=== PATIENT | female | born 1970 | race Caucasian/White ===

== ENCOUNTER 2016-08-08 05:58 | Day surgery (SDC) | payer MEDICAID ==
[~2016-08-08] VITALS: Ht 174 cm; Wt 95.0 kg
[~2016-08-08 05:58] MED LIST: ASPI81 PO; CYAN250014 PO; DIPH25 PO; FERR325T40 PO; INSLAN SQ; IRON-15 PO; LOVA20 PO; NAPR-58 PO; OMEG-12 PO; OMEP20 PO; PROV5 PO; SODIUM CHLORIDE 0.9% 1,000 ML IV ONE
[2016-08-08] MEDS ORDERED: SODIUM CHLORIDE 0.9% 1,000 ML IV ONE ×2 (06:12→06:13)
[2016-08-08] MEDS ORDERED: CeFAZolin 1 GM/DEXTROSE 50 ML IV ONE ×2 (06:13→07:00)
[2016-08-08] MEDS ORDERED: FentaNYL CITRATE-PF 100 MCG/2 ML VIAL IVP ONE ×3 (07:00→08:44)
[2016-08-08] MEDS ORDERED: MIDAZOLAM HCL 2 MG/2 ML VIAL IVP ONE ×3 (07:00→08:44)
[2016-08-08] MEDS ORDERED: DiphenhydrAMINE HCL 25 MG CAPSULE PO ONE (07:00)
[2016-08-08] MEDS ORDERED: DiphenhydrAMINE HCL 25 MG CAPSULE ONE (07:04)
[2016-08-08 07:16] LABS: GLUCOSE COMMENT 1 Doctor Notified; GLUCOSE,POINT OF CARE 153 MG/DL (70-110)
[2016-08-08 07:34] VITALS: BP 120/70
[2016-08-08] MEDS ORDERED: IODIXANOL 320 MG/ML 100 ML VIAL ONE (07:44)
[2016-08-08] MEDS ORDERED: FentaNYL CITRATE-PF 100 MCG/2 ML VIAL ONE ×2 (07:44→08:24)
[2016-08-08] MEDS ORDERED: MIDAZOLAM HCL 2 MG/2 ML VIAL ONE ×2 (07:44→08:49)
[2016-08-08] MEDS ORDERED: 0.9% SODIUM CHLORIDE 10 ML SYRINGE IVP ONE (07:45)
[2016-08-08] MEDS ORDERED: LIDOCAINE HCL/PF 1% 30 ML VIAL ONE (07:45)
[2016-08-08] MEDS ORDERED: HEPARIN SODIUM 1000 UNITS/NS 500 ML ONE (07:45)
[2016-08-08] MEDS ORDERED: LIDOCAINE 1% 30 ML/SOD BICARB 8.4% 4 ML SQ ONE (07:51)
[2016-08-08] MEDS ORDERED: HEPARIN SODIUM 1000 UNITS/NS 1,000 ML IARTER ONE (07:53)
[2016-08-08] MEDS ORDERED: IODIXANOL 320 MG/ML 50 ML VIAL IARTER ONE ×2 (07:56)
[2016-08-08] MEDS ORDERED: IODIXANOL 320 MG/ML 100 ML VIAL IARTER ONE (07:56)
[2016-08-08] MEDS ORDERED: GELATIN SPONGE,ABSORBABLE 12-7 MM TP ONE ×2 (08:35→08:36)
[2016-08-08] MEDS ORDERED: IODIXANOL 320 MG/ML 50 ML VIAL ONE ×2 (08:48→09:01)
[2016-08-08 09:15] VITALS: BP_SYST 120; BP_SYST 147; BP_DIAS 70; BP_DIAS 88
[2016-08-08] MEDS ORDERED: HYDROmorphone 2 MG/ML SYRINGE IVP ONE (09:45)
[2016-08-08 10:12] LABS: GLUCOSE,POINT OF CARE 111 MG/DL (70-110)
== END 2016-08-08 12:15 | disposition home or self-care (01) ==
LOC: SDS 05:58 → EDSTATUS 07:30 → SDS 12:15
PROVIDERS: ATTEND Radiology Vascular & Interventional Radiology
DX: D25.9 Leiomyoma of uterus, unspecified (principal)
CPT/HCPCS: 36247; 37243; 75625; 75736; 82962; C1760; C1769; C1892; J0690; J1170; J1644; J2250; J3010; J3490; J7030; Q9967 ×2; 36245; 76937

== ENCOUNTER 2018-11-06 21:19 | Emergency (ER) | payer MEDICAID ==
[~2018-11-06] VITALS: Ht 170.2 cm; Wt 95.5 kg
[~2018-11-06 21:19] MED LIST changes: +FERR-82 PO; -FERR325T40 PO; +NAPR-1025 PO; -NAPR-58 PO; -SODIUM CHLORIDE 0.9% 1,000 ML IV ONE
[2018-11-06] MEDS ORDERED: INSU100I26 SQ (21:32)
[2018-11-06] MEDS ORDERED: ATOR40TA28 PO (21:32)
[2018-11-06 21:40] LABS: GLUCOSE,POINT OF CARE 144 MG/DL (70-110)
[2018-11-06 21:48] LABS: APPEARANCE,URINE CLOUDY (CLEAR); BILIRUBIN,URINE NEGATIVE (NEGATIVE); GLUCOSE, URINE (UA) NEGATIVE (NEGATIVE); KETONES,URINE NEGATIVE (NEGATIVE); LEUKOCYTE ESTERASE ,URINE TRACE (NEGATIVE); NITRATE,URINE NEGATIVE (NEGATIVE); OCCULT BLOOD,URINE LARGE (NEGATIVE); PH,URINE 6.5 (5.0-8.0); PROTEIN,URINE SEE CONFIRM (NEGATIVE); UROBILINOGEN,URINE 0.2 mg/dL (<=1.0)
[2018-11-06 21:57] LABS: BACTERIA,URINE Rare /HPF (None Seen); RBC,URINE 26-50 /HPF (0-2); SQUAMOUS EPITHELIAL CELL,UR Few /LPF (None Seen); SULFOSALICYLIC ACID,URINE 3+ (Negative)
[2018-11-06 21:58] LABS: BASOPHILS % (AUTO) 1.1 % (0.0-2.0); EOSINOPHILS % (AUTO) 1.7 % (1.0-6.0); HEMOGLOBIN 12.2 g/dL (12.0-16.0); LYMPHOCYTES % (AUTO) 38.2 % (22.0-44.0); MEAN CORPUSCULAR HEMOGLOBIN 31.9 pg (26.0-34.0); MEAN CORPUSCULAR VOLUME 94 fL (80-100); MONOCYTES # (AUTO) 0.6 K/uL (0.1-1.0); MONOCYTES % (AUTO) 7.1 % (2.0-9.0); NEUTROPHILS # (AUTO) 4.1 K/uL (1.8-7.7); NEUTROPHILS % (AUTO) 51.9 % (40.0-70.0); PLATELET COUNT (AUTO) 382 K/uL (150-450); RED BLOOD CELL COUNT(AUTO) 3.84 MIL/uL (4.00-5.20); RED CELL DISTRIBUTION WIDTH 15.4 % (11.5-14.5)
[2018-11-06 22:16] LABS: HCG,QUANTITATIVE < 1 mIU/mL (0-6)
[2018-11-06 22:28] LABS: ANION GAP 7 mmol/L (8-16); CALCIUM, TOTAL 9.5 mg/dL (8.8-10.5); CARBON DIOXIDE 29 mmol/L (22-29); CHLORIDE 100 mmol/L (98-107); CREATININE 0.67 mg/dL (0.60-1.30); GLOMERULAR FILTR. RATE CALC > 60 mL/min (>60); GLUCOSE,RANDOM 154 mg/dL (70-110); POTASSIUM 3.6 mmol/L (3.5-5.1); SODIUM SERUM 136 mmol/L (136-145); UREA NITROGEN, BLOOD 7 mg/dL (7-18)
[2018-11-06] MEDS ORDERED: KETOROLAC TROMETHAMINE 30 MG/ML VIAL IM ONE (22:45)
[2018-11-06 22:47] LABS: ALANINE AMINOTRANSFERASE 22 U/L (12-78); ALBUMIN 3.8 g/dL (3.4-5.0); ALKALINE PHOSPHATASE 128 U/L (46-116); BILIRUBIN,TOTAL 0.3 mg/dL (0.1-1.0)
[2018-11-06 22:48] LABS: ASPARTATE AMINOTRANSFERASE 15 U/L (15-37); TOTAL PROTEIN, SERUM 7.2 g/dL (6.4-8.2)
[2018-11-07 00:30] VITALS: BP 121/88
== END 2018-11-07 01:24 | disposition home or self-care (01) ==
LOC: EMS 21:21
DX: N93.9 Abnormal uterine and vaginal bleeding, unspecified (principal); D25.9 Leiomyoma of uterus, unspecified; E11.9 Type 2 diabetes mellitus without complications; F17.210 Nicotine dependence, cigarettes, uncomplicated; Z79.82 Long term (current) use of aspirin; Z79.4 Long term (current) use of insulin; Z98.51 Tubal ligation status
CPT/HCPCS: 36415; 76830; 76856; 80053; 81001; 82962; 84702; 85025; 96372; 99284; 99406; J1885

== ENCOUNTER 2022-05-27 01:04 | Emergency (ER) | payer MEDICAID ==
[~2022-05-27] VITALS: Ht 170.2 cm; Wt 81.8 kg
[~2022-05-27 01:04] MED LIST changes: +ASPI-1450 PO; -ASPI81 PO; +ATOR40TA28 PO; -CYAN250014 PO; -DIPH25 PO; -FERR-82 PO; -INSLAN SQ; +INSU100I26 SQ; -IRON-15 PO; -LOVA20 PO; -NAPR-1025 PO; -OMEG-12 PO; -OMEP20 PO; -PROV5 PO
[2022-05-27 01:18] VITALS: BP 130/74
[2022-05-27] MEDS ORDERED: LIDOCAINE/PF 1% 2 ML VIAL IM ONE (02:00)
[2022-05-27] MEDS ORDERED: SULFAMETHOX/TRIMETH DS 800-160 MG/TABLET PO ONE (02:00)
[2022-05-27] MEDS ORDERED: CefTRIAXone SODIUM 1 GM/VIAL IM ONE (02:00)
== END 2022-05-27 02:33 | disposition home or self-care (01) ==
LOC: EMS 01:07
DX: L03.113 Cellulitis of right upper limb (principal); F17.210 Nicotine dependence, cigarettes, uncomplicated; E11.9 Type 2 diabetes mellitus without complications; Z90.710 Acquired absence of both cervix and uterus
CPT/HCPCS: 99283; 96372; J0696; J3490